=== PATIENT | female | born 1990 | race Caucasian/White ===

== ENCOUNTER 2023-04-16 07:29 | Outpatient (OUT) | payer OTHER, SELFPAY ==
[2023-04-16 08:25] LABS: Free T3 4.04 pg/mL (2.18-3.98); Thyroid Stimulating Hormone <0.007 uIU/mL (0.358-3.740)
[2023-04-16 09:26] LABS: Free T4 1.21 ng/dL (0.76-1.46)
== END 2023-04-16 07:30 ==
PROVIDERS: PCP Nurse Practitioner; Visit Provider Nurse Practitioner
DX: E05.90 Thyrotoxicosis, unspecified without thyrotoxic crisis or storm (principal); E03.9 Hypothyroidism, unspecified
CPT/HCPCS: 36415; 84439; 84443; 84481

== ENCOUNTER 2023-05-08 09:40 | Outpatient (OUT) | payer OTHER, SELFPAY ==
[2023-05-08 12:58] LABS: Alanine Aminotransferase 40 U/L (14-59); Albumin Globulin Ratio 0.8; Albumin Level 3.4 g/dL (3.4-5.0); Alkaline Phosphatase 52 U/L (46-116); Aspartate Amino Transferase 21 U/L (15-37); Bilirubin Direct 0.1 mg/dL (0.0-0.2); Bilirubin Total 0.3 mg/dL (0.2-1.0); Globulin 4.2 g/dL; Total Protein 7.6 g/dL (6.4-8.2)
[2023-05-09 04:07] LABS: Thyroid Peroxidase (TPO) Ab 69 IU/mL (0-34)
[2023-05-10 14:07] LABS: Thyrotropin Receptor Ab, Serum 2.41 IU/L (0.00-1.75)
[2023-05-11 16:09] LABS: Thyroglobulin Antibody <1.0 IU/mL (0.0-0.9)
== END 2023-05-08 09:41 | disposition home or self-care (01) ==
LOC: LAB 05-12 15:01
PROVIDERS: PCP Nurse Practitioner; Visit Provider Internal Medicine
DX: F41.9 Anxiety disorder, unspecified (principal); E05.90 Thyrotoxicosis, unspecified without thyrotoxic crisis or storm
CPT/HCPCS: 36415; 80076; 83520; 86376; 86800

== ENCOUNTER 2023-07-03 07:08 | Outpatient (OUT) | payer OTHER, SELFPAY ==
[2023-07-03 08:45] LABS: Alanine Aminotransferase 39 U/L (14-59); Albumin Globulin Ratio 0.9; Albumin Level 3.8 g/dL (3.4-5.0); Alkaline Phosphatase 54 U/L (46-116); Aspartate Amino Transferase 16 U/L (15-37); Bilirubin Direct 0.1 mg/dL (0.0-0.2); Bilirubin Total 0.3 mg/dL (0.2-1.0); Free T3 3.91 pg/mL (2.18-3.98); Globulin 4.3 g/dL; Thyroid Stimulating Hormone <0.007 uIU/mL (0.358-3.740); Total Protein 8.1 g/dL (6.4-8.2)
[2023-07-03 09:45] LABS: Free T4 1.13 ng/dL (0.76-1.46)
== END 2023-07-03 07:09 | disposition home or self-care (01) ==
LOC: LAB 07:10
PROVIDERS: PCP Nurse Practitioner; Visit Provider Internal Medicine
DX: E05.90 Thyrotoxicosis, unspecified without thyrotoxic crisis or storm (principal); E05.00 Thyrotoxicosis with diffuse goiter without thyrotoxic crisis or storm
CPT/HCPCS: 36415; 80076; 84439; 84443; 84481

== ENCOUNTER 2023-09-23 12:12 | Outpatient (OUT) | payer OTHER, SELFPAY ==
[2023-09-23 12:55] LABS: Alanine Aminotransferase 30 U/L (14-59); Albumin Globulin Ratio 0.9; Albumin Level 3.7 g/dL (3.4-5.0); Alkaline Phosphatase 63 U/L (46-116); Aspartate Amino Transferase 19 U/L (15-37); Bilirubin Direct 0.1 mg/dL (0.0-0.2); Bilirubin Total 0.3 mg/dL (0.2-1.0); Free T3 2.44 pg/mL (2.18-3.98); Globulin 4.3 g/dL; Thyroid Stimulating Hormone 0.681 uIU/mL (0.358-3.740)
--- OUTSIDE RECORDS SUMMARY | 2023-11-03 14:09 | XMS_ITS | CCD ---
Author Name Unknown Address [address] [place] [address] Organization [facility] Care Team Providers Care [place] [facility] Team Member Name Role Phone Meg Oropeza Primary Care Physician SANDIP ., MEG Katz Attending Unavailable SANDIP ., MEG Katz Admitting Unavailable ALCOCER ., DR ZULMA Gómez Primary Care Unavailable ZIEBER, DR ROBERTA Gant Consulting Unavailable SANDIP ., MEG Katz Consulting Unavailable SandipMeg Primary Care Unavailable Esdras, Emerald Attending Unavailable EsdrasEl alcantarad Admitting Unavailable Sandip, BIOMEDICAL ENGINEERING TECHNICIAN Meg Katz Attending Unavailable Sandip, BIOMEDICAL ENGINEERING TECHNICIAN Meg Katz Attending Unavailable Sandip, BIOMEDICAL ENGINEERING TECHNICIAN Meg Katz Attending Unavailable Sandip, BIOMEDICAL ENGINEERING TECHNICIAN Meg Katz Admitting Unavailable Sandip, BIOMEDICAL ENGINEERING TECHNICIAN Meg Katz Attending Unavailable Bipin To Admitting Unavailable Bipin To Attending Unavailable Medications Current Medications Medication Drug Class(es) Dates Sig (Normalized) Sig (Original) hydroCHLOROthiazide 12.5 mg oral capsule (2 sources) Thiazide Diuretic Start: 3 take 1 capsule by mouth once daily hydrochlorothiazide 12.5 mg Cap 12.5 mg = 1 cap(s), Oral, Daily, # 30 cap(s), Refills(s) 1, Pharmacy: [facility]/pharmacy #[id number], 166, cm, 03/09/23 8:31:00 EDT, Height/Length Dosing, 143, kg, 03/09/23 8:33:00 EDT, Weight Dosing Start Date: 03/09/23 Status: Ordered Problems Problem Classification Problem Date Documented Da te Episodic/Chronic Hemorrhoids (2 sources) Hemorrhoids 03-06-2023 Episodic Malaise and fatigue (4 sources) Other fatigue; Translations: [OTHER FATIGUE] Onset: 03-11-2023 Episodic Menstrual disorders (1 source) Excessive and frequent menstruation with regular cycle; Translations: [EXCESS FREQ MENSTRUATION W/REG CYCL] Onset: 03-14-2023 Chronic Other female genital disorders (2 sources) Dysplasia of cervix 03-14-2014 Episodic Other nervous system disorders (2 sources) H/O: migraine 04-27-2014 Episodic Other nutritional; endocrine; and metabolic disorders (1 source) Abnormal weight gain; Translations: [ABNORMAL WEIGHT GAIN] Onset: 03-14-2023 Episodic Unclassified (1 source) Thyrotoxicosis, unspecified without thyrotoxic crisis or storm; Translations: [Thyrotoxicosis, unspecified without thyrotoxic crisis or storm] Onset: 04-28-2023 Viral infection (2 sources) Coronavirus infection 03-06-2023 Episodic Comment on above: Jul 2021 and Nov 04 Results Test Name Value Interpretation Reference Range Facil ity NM thyroid uptake multipleon 04-29-2023 NM thyroid uptake [facility] [place] [address] Nuclear Medicine Report Signed Patient: Kiley Oliver MR#: [id number] 3 : 1990 Acct:[id number] Age/Sex: 32 / F ADM Date: 04/28/23 Loc: [place] Room: Type: [facility] Attending Dr: Emerald Dewitt MD Copies to: MD Dickson Gutierrez Jeffrey S DO Ordering Provider: Emerald Dewitt MD Date of Service: 04/28/23 NM/NM thyroid uptake multiple: E05.90, F41.9 Nuclear medicine thyroid uptake TECHNIQUE: Patient ingested a capsule containing 2 and 78 uCi of I-123. For 24 hour uptake performed. Planar imaging of the neck obtained. HISTORY: Weight gain. Abnormal menses. Swelling. Tiny RIGHT thyroid nodule seen with ultrasound examination 04/28/23 Homogeneous uptake of thyroid gland seen without hot or cold nodule. 4 uptake is 16.2%. The 24- hour uptake is 37.3%. 4 uptake is normal. 24-hour uptake is elevated. NM/NM thyroid uptake multiple IMPRESSION: No hot or cold nodule of thyroid gland. Normal 4 hour uptake. Elevated 24-hour uptake. Impression dictated by: Benito Forman M.D.04/29/2023 8:28 AM Dictation Location: [place] [address] Transcribed By: [facility] 04/29/23827 Dictated By: Benito Forman DO 04/29/23822 Signed By: 04/29/23827 [facility] US thyroidon 04-28-2023 US thyroid [facility] [place] [address] Ultrasound Report Signed Patient: Kiley Oliver MR#: [id number] 3 : 1990 Acct:[id number] Age/Sex: 32 / F ADM Date: 04/28/23 Loc: [place] Room: Type: [facility] Attending Dr: Emerald Dewitt MD Ordering Provider: Emerald Dewitt MD Date of Service: 04/28/23 US/US thyroid: R05.90, F41.9 Copies to: Emerald Dewitt MD THYROID ULTRASOUND CLINICAL DATA: Thyrotoxicosis COMPARISON: None The right thyroid lobe measures 5.1 x 1.8 x 2.2 cm. The left lobe measures 4.6 x 1.8 x 2.1 cm. The isthmus measures 2 - 3 mm. Echotexture is mildly heterogeneous. A small hypoechoic nodular area is visualized toward the upper pole of the right thyroid lobe measuring 6 x 3 x 4 mm . No nodularity is seen on the left. There is no significant hyperemia. US/US thyroid IMPRESSION: MILDLY HETEROGENEOUS THYROID. TINY RIGHT THYROID NODULE. Impression dictated by: Clarissa Polo M.D.04/28/2023 11:43 AM Dictation Location: [place] [address] Tech: Joseline Christy Transcribed By: KHADAR 04/28/23 114 Dictated By: Clarissa Polo MD 04/28/23 1142 Signed By: 04/28/23 114 [facility] PAP [id number] 04-02-2023 Cytology report Cyto stain Doc (Cvx/Vag) Note Invalid Interpretation Code [facility] Comment on above: Result Comment: TESTS RESULT FLAG UNITS REF RANGE LAB Clinician Provided Cytology Information Source.............Endocervix No. of containers..01 ThinPrep Vial DIAGNOSIS: 01 NEGATIVE FOR INTRAEPITHELIAL LESION OR MALIGNANCY. SPECIMEN REPROCESSED FOR INTERPRETATION USING GLACIAL ACETIC ACID (GAA). Specimen adequacy: 01 Satisfactory for evaluation. Endocervical and/or squamous metaplastic cells (endocervical component) are present. Areas of partially obscuring blood are present. Performed by: 01 Herb Monteiro, Autopsy Pathologist (ASCP) . 01 Note: Note 01 The Pap smear is a screening test designed to aid in the detection of premalignant and malignant conditions of the uterine cervix. It is not a diagnostic procedure and should not be used as the sole means of detecting cervical cancer. Both false-positive and false-negative reports do occur. Test Methodology: Note 01 This liquid based ThinPrep(R) pap test was screened with the use of an image guided system. FLAG LEGEND: L-Low Normal,H-High Normal,LL-Alert Low,HH-Alert High <-Panic Low,>-Panic High,A-Abnormal,AA-Critical Abnormal Performed at: [address] [facility] [place] [address] Wanda Brandon MD, Performed By: #### 3 [id number] #### [facility] [address] [place] [address] HPV 16+18+31+33+35+39+45+51+52+56+58+59+66+68 DNA Probe+sig amp Ql (Cvx) Negative Invalid Interpretation Code Negative [facility] Comment on above: Result Comment: This nucleic acid amplification test detects fourteen high-risk HPV types (16,18,31,33,35,39,45,51,52,56,58,59,66,68) without differentiation. Performed at: [facility] [address] [place], [place] [id number] MD Roma Muñoz Performed at: =[facility] [id number] MD Roma Muñoz Performed By: #### 3 [id number] #### [facility] [address] [place] [address] Ambulatory Visit Summaryon 0 03-26-2023 Ambulatory Visit Summary KILEY OLIVER :1990 Visit Date:03/26/2023 Ambulatory Visit Instructions Your Diagnosis Thyroid disorder BMI 45.0-49.9, adult Non-smoker Your Care Team Attending Physician - Meg Mckinney Primary Care Physician - Meg Mckinney This Is Your Medications List hydrochlorothiazide (hydrochlorothiazide 12.5 mg Cap) Procedures Performed diagnostic therapeutic cone with endocervical curettage (03/24/2014). Discharge Vitals Heart Rate (Peripheral) 98 Blood Pressure 130/88 Height 168 cm Height 66 in Weight 139.9 kg Weight 307.78 lb BMI 49.57 Medications What How Much When Instructions New hydrochlorothiazide (hydrochlorothiazide 12.5 mg Cap) 1 Capsules By Mouth Every day Duration: 90 Days Refills: 3 Pickup at [id number] Pharmacy Information [id number]: [address] [place], [place] [id number] [phone] Allergies No Known Allergies Problems Ongoing - Any problem that you are currently receiving treatment for. BMI 45.0-49.9, adult Cervical dysplasia Coronavirus infection Hemorrhoids Hx of migraines Non-smoker Education Materials BMI for Adults What is BMI? Body mass index (BMI) is a number that is calculated from a person's weight and height. BMI can help estimate how much of a person's weight is composed of fat. BMI does not measure body fat directly. Rather, it is an alternative to procedures that directly measure body fat, which can be difficult and expensive. BMI can help identify people who may be at higher risk for certain medical problems. What are BMI measurements used for? BMI is used as a screening tool to identify possible weight problems. It helps determine whether a person is obese, overweight, a healthy weight, or underweight. BMI is useful for: ? Identifying a weight problem that may be related to a medical condition or may increase the risk for medical problems. ? Promoting changes, such as changes in diet and exercise, to help reach a healthy weight. BMI screening can be repeated to see if these changes are working. How is BMI calculated? BMI involves measuring your weight in relation to your height. Both height and weight are measured, and the BMI is calculated from those numbers. This can be done either in Cymro ([place] or metric measurements. Note that charts and online BMI calculators are available to help you find your BMI quickly and easily without having to do these calculations yourself. To calculate your BMI in Cymro ([place].S[place] measurements: 1. Measure your weight in pounds (lb). 2. Multiply the number of pounds by 703. ? For example, for a person who weighs 180 lb, multiply that number by 703, which equals 126,540. 3. Measure your height in inches. Then multiply that number by itself to get a measurement called inches squared. ? For example, for a person who is 70 inches tall, the inches squared measurement is 70 inches x 70 inches, which equals 4,900 inches squared. 4. Divide the total from step 2 (number of lb x 703) by the total from step 3 (inches squared): 126,540 ? 4,900 = 25.8. This is your BMI. To calculate your BMI in metric measurements: 1. Measure your weight in kilograms (kg). 2. Measure your height in meters (m). Then multiply that number by itself to get a measurement called meters squared. ? For example, for a person who is 1.75 m tall, the meters squared measurement is 1.75 m x 1.75 m, which is equal to 3.1 meters squared. 3. Divide the number of kilograms (your weight) by the meters squared number. In this example: 70 ? 3.1 = 22.6. This is your BMI. What do the results mean? BMI charts are used to identify whether you are underweight, normal weight, overweight, or obese. The following guidelines will be used: ? Underweight: BMI less than 18.5. ? Normal weight: BMI between 18.5 and 24.9. ? Overweight: BMI between 25 and 29.9. ? Obese: BMI of 30 or above. Keep these notes in mind: ? Weight includes both fat and muscle, so someone with a muscular build, such as an athlete, may have a BMI that is higher than 24.9. In cases like these, BMI is not an accurate measure of body fat. ? To determine if excess body fat is the cause of a BMI of 25 or higher, further assessments may need to be done by a health care provider. ? BMI is usually interpreted in the same way for men and women. Where to find more information For more information about BMI, including tools to quickly calculate your BMI, go to these websites: ? Centers for Disease Control and Prevention: www.cdc.gov ? [place] Heart Association: www.heart.org ? National Heart, Lung, and Blood [place]: www.nhlbi.nih.gov Summary ? Body mass index (BMI) is a number that is calculated from a person's weight and height. ? BMI may help estimate how much of a person's weight is composed of fat. BMI can help identify thos (more content not included)... Normal [facility] Family Medicine Office/Clini c Noteon 03-26-2023 Family Medicine Office/Clinic Note Chief Complaint chronic follow up HPI Staff Pt in office for recheck Menorrhagia, Fatigue, [place] extremity edema. BP was elevated at last visit at 03/09/23 visit reading was 140/100. Due for adult wellness and cervical cancer screen. Questions/concerns: Seen Dr. To yesterday, looked at ultrasound and lab work. Was placed on Provera for a week. Last labs 03/11/23 [facility] records in chart Abdominal US 03/09/23 [facility] records in chart Most recent TSH -03/09/23-.080 History of Present Illness pt presents today today go over lab work. she had her well woman exam done by Dr. Maza yesterday Review of Systems PHQ Score Initial Depression Screen Score: 0 ROS - Provider Constitutional: no fever, no chills, no sweats, no fatigue Respiratory: no shortness of breath, no cough, no orthopnea, no wheezing. Cardiovascular: no chest pain, no palpitations, no edema. Neurologic: no headache, no dizziness, no numbness, no weakness. Physical Exam Vitals & Measurements HR: 98(Peripheral) BP: 130/88 SpO2: 98% HT: 66 in HT: 168 cm WT: 139.9 kg WT: 307.78 lb BMI: 49.57 General: alert, no acute distress ENMT: oral mucosa moist, no pharyngeal erythema or exudate Cardiovascular: regular rate and rhythm, normal peripheral perfusion Respiratory: Lungs CTA, respirations non labored Extremities: no deformity, no trauma Neurological: oriented x 4, LOC appropriate for age, CN II-XII intact, motor strength equal & normal bilaterally, speech normal Assessment/Plan 1. Thyroid disorder (E07.9: Disorder of thyroid, unspecified) pt presents today to go over lab work. She was seen by Dr. Maza yesterday so he is taking care of her abnormal u/s results. Discussed lab work. discussed hyperthyroidism. will have TSH redrawn in 3 weeks. if it is still low. will consider starting medicaiton Ordered: Free T4 T3 Free Thyroid Stimulating Hormone 2. BMI 45.0-49.9, adult (Z68.42: Body mass index [BMI] 45.0-49.9, adult) BMI education complete Ordered: Free T4 T3 Free Thyroid Stimulating Hormone 3. Non-smoker (Z78.9: Other specified health status) continue not smoking Ordered: Free T4 T3 Free Thyroid Stimulating Hormone Orders: hydrochlorothiazide, 12.5 mg = 1 cap(s), Oral, Daily, X 90 day(s), # 90 cap(s), Refills(s) 3, Pharmacy: [facility]/pharmacy #[id number], 168, cm, 03/26/23 8:49:00 EDT, Height/Length Dosing, 139.9, kg, 03/26/23 8:49:00 EDT, Weight Dosing hydrochlorothiazide, 12.5 mg = 1 cap(s), Oral, Daily, # 30 cap(s), Refills(s) 1, Pharmacy: [facility]/pharmacy #[id number], 166, cm, 03/09/23 8:31:00 EDT, Height/Length Dosing, 143, kg, 03/09/23 8:33:00 EDT, Weight Dosing Follow-up No qualifying data available Patient Education BMI for Adults Problem List/Past Medical History Ongoing BMI 45.0-49.9, adult Cervical dysplasia Coronavirus infection Hemorrhoids Hx of migraines Non-smoker Historical No qualifying data Procedure/Surgical History diagnostic therapeutic cone with endocervical curettage (03/24/2014). Medications hydrochlorothiazide 12.5 mg Cap, 12.5 mg= 1 cap(s), Oral, Daily, 3 refills Allergies No Known Allergies Social History Alcohol - Denies Alcohol Use, 03/14/2014 Substance Abuse - Denies Substance Abuse, 03/14/2014 Tobacco - Denies Tobacco Use, 03/14/2014 Never (less than 100 in lifetime) Tobacco Use:. Never Smokeless Tobacco Use:. Household tobacco concerns: No., 03/26/2023 Family History Drug addiction: Brother. Hyperlipidemia: Mother. Hypertension: Mother. Thyroid disorder: Mother. Normal [facility] Comment on above: Result Comment: Elec tronically Signed By: Meg Mckinney\.br\Date and Time Signed: 03/26/23 09:25 EDT Patient Educationon 03-26-20 Patient Education Nutrition BMI for Adults What is BMI? Body mass index (BMI) is a number that is calculated from a person's weight and height. BMI can help estimate how much of a person's weight is composed of fat. BMI does not measure body fat directly. Rather, it is an alternative to procedures that directly measure body fat, which can be difficult and expensive. BMI can help identify people who may be at higher risk for certain medical problems. What are BMI measurements used for? BMI is used as a screening tool to identify possible weight problems. It helps determine whether a person is obese, overweight, a healthy weight, or underweight. BMI is useful for: ? Identifying a weight problem that may be related to a medical condition or may increase the risk for medical problems. ? Promoting changes, such as changes in diet and exercise, to help reach a healthy weight. BMI screening can be repeated to see if these changes are working. How is BMI calculated? BMI involves measuring your weight in relation to your height. Both height and weight are measured, and the BMI is calculated from those numbers. This can be done either in Cymro (U.S.) or metric measurements. Note that charts and online BMI calculators are available to help you find your BMI quickly and easily without having to do these calculations yourself. To calculate your BMI in Cymro ([place].S[place] measurements: 1. Measure your weight in pounds (lb). 2. Multiply the number of pounds by 703. ? For example, for a person who weighs 180 lb, multiply that number by 703, which equals 126,540. 3. Measure your height in inches. Then multiply that number by itself to get a measurement called inches squared. ? For example, for a person who is 70 inches tall, the inches squared measurement is 70 inches x 70 inches, which equals 4,900 inches squared. 4. Divide the total from step 2 (number of lb x 703) by the total from step 3 (inches squared): 126,540 ? 4,900 = 25.8. This is your BMI. To calculate your BMI in metric measurements: 1. Measure your weight in kilograms (kg). 2. Measure your height in meters (m). Then multiply that number by itself to get a measurement called meters squared. ? For example, for a person who is 1.75 m tall, the meters squared measurement is 1.75 m x 1.75 m, which is equal to 3.1 meters squared. 3. Divide the number of kilograms (your weight) by the meters squared number. In this example: 70 ? 3.1 = 22.6. This is your BMI. What do the results mean? BMI charts are used to identify whether you are underweight, normal weight, overweight, or obese. The following guidelines will be used: ? Underweight: BMI less than 18.5. ? Normal weight: BMI between 18.5 and 24.9. ? Overweight: BMI between 25 and 29.9. ? Obese: BMI of 30 or above. Keep these notes in mind: ? Weight includes both fat and muscle, so someone with a muscular build, such as an athlete, may have a BMI that is higher than 24.9. In cases like these, BMI is not an accurate measure of body fat. ? To determine if excess body fat is the cause of a BMI of 25 or higher, further assessments may need to be done by a health care provider. ? BMI is usually interpreted in the same way for men and women. Where to find more information For more information about BMI, including tools to quickly calculate your BMI, go to these websites: ? Centers for Disease Control and Prevention: www.cdc.gov ? [place] Heart Association: www.heart.org ? National Heart, Lung, and Blood [place]: www.nhlbi.nih.gov Summary ? Body mass index (BMI) is a number that is calculated from a person's weight and height. ? BMI may help estimate how much of a person's weight is composed of fat. BMI can help identify those who may be at higher risk for certain medical problems. ? BMI can be measured using Cymro measurements or metric measurements. ? BMI charts are used to identify whether you are underweight, normal weight, overweight, or obese. This information is not intended to replace advice given to you by your health care provider. Make sure you discuss any questions you have with your health care provider. Document Revised: 07/25/2020 Document Reviewed: 06/01/2020 [employer] Patient Education ? 2022 [employer] Normal [facility] PAP [id number] 03-25-2023 Collection Technique BRUSH-SPATULA Normal F [facility] Comment on above: Performed By: #### 3 [id number] #### [facility] [address] [place] [address] Gynecological Body Site ENDOCERVIX Normal [facility] Comment on above: Performed By: #### 3 [id number] #### [facility] [address] [place] [address] Physician Orderon 03-25-2023 Physician Order [id number]:127 Normal [facility] CBC AUTO DIFFon 03-11-2023 BASO # 0.1 103/ul Normal 0.0-0.1 [facility] Comment on above: Performed By: #### C BC #### [facility] [address] [place] [address] [address] Wood Espinoza Basophils/100 WBC (Bld) 0.8 % Normal 0.2-2.0 [facility] Comment on above: Performed By: #### C BC #### [facility] [address] [place] [address] Dr. Wood Espinoza EO # 0.1 103/ul Normal 0.0-0.7 [facility] Comment on above: Performed By: #### C BC #### [facility] [address] [place] [address] Dr. Wood Espinoza Eosinophils/100 WBC (Bld) 1.8 % Normal 0.9-7.0 [facility] Comment on above: Performed By: #### C BC #### [facility] [address] [place] [address] Dr. Wood Espinoza Erythrocyte distribution wid th (RBC) [Ratio] 16.3 % Critically high 11.0-15.0 [facility] Comment on above: Performed By: #### C BC #### [facility] [address] [place] [address] Dr. Wood Espinoza Hematocrit (Bld) [Volume fraction] 42.8 % Normal 3 6.0-48.0 [facility] Comment on above: Performed By: #### C BC #### [facility] [address] [place] [address] Dr. Wood Espinoza Hemoglobin (Bld) [Mass/Vol] 13.2 g/dL Normal 12.0-16. 0 [facility] Comment on above: Performed By: #### C BC #### [facility] [address] [place] [address] Dr. Wood Espinoza IG # 0.03 10e3/ul Normal 0.00-0.03 [facility] Comment on above: Performed By: #### C BC #### [facility] [address] [place] [address] Dr. Wood Espinoza IG % 0.5 % Normal 0.0-0.5 [facility] Comment on above: Performed By: #### C BC #### [facility] [address] [place] [address] Dr. Wood Espinoza LYMPH # 2.5 103/ul Normal 1.2-3.8 [facility] Comment on above: Performed By: #### C BC #### [facility] [address] [place] [address] [address] Wood Espinoza Lymphocytes/100 WBC (Bld) 38.9 % Normal 20.5-60.0 [facility] Comment on above: Performed By: #### C BC #### [facility] [address] [place] [address] Dr. Wood Espinoza MANUAL DIFF REQ NO Normal [facility] Comment on above: Performed By: #### C BC #### [facility] [address] [place] [address] Dr. Wood Espinoza MCH (RBC) [Entitic mass] 23.7 pg Critically low 26.7-34 .0 [facility] Comment on above: Performed By: #### C BC #### [facility] [address] [place] [address] Dr. Wood Espinoza MCHC (RBC) [Mass/Vol] 30.8 g/dL Normal 29.9-35.2 [facility] Comment on above: Performed By: #### C BC #### [facility] [address] [place] [address] Dr. Wood Espinoza MCV (RBC) [Entitic vol] 76.7 fL Critically low 81.0-99. 0 [facility] Comment on above: Performed By: #### C BC #### [facility] [address] [place] [address] Dr. Wood Espinoza MONO # 0.5 103/ul Normal 0.3-0.8 [facility] Comment on above: Performed By: #### C BC #### [facility] [address] [place] [place] [address] Dr. Wood Espinoza Monocytes/100 WBC (Bld) 7.0 % Normal 1.7-12.0 [facility] Comment on above: Performed By: #### C BC #### [facility] [address] [place] [address] Dr. Wood Espinoza NEUT # 3.3 103/ul Normal 1.4-6.5 [facility] Comment on above: Performed By: #### C BC #### [facility] [address] [address] [address] Wood Espinoza Neutrophils/100 WBC (Bld) 51.0 % Normal 43.0-75.0 [facility] Comment on above: Performed By: #### C BC #### [facility] [address] [address] [address] Wood Espinoza Platelet mean volume (Bld) [Entitic vol] 9.7 fL Normal 9.5-13.5 [facility] Comment on above: Performed By: #### C BC #### [facility] [address] [address] [address] Wood Espinoza PLT 249 103/ul Normal 150-450 [facility] Comment on above: Performed By: #### C BC #### [facility] [address] [address] [address] Wood Espinoza RBC 5.58 106/ul Critically high 4.20-5.40 [facility] Comment on above: Performed By: #### C BC #### [facility] [address] [address] [address] Wood Espinoza WBC 6.5 103/ul Normal 4.0-11.0 [facility] Comment on above: Performed By: #### C BC #### [facility] [address] [address] [address] Wood Espinoza FREE T4on 03-11-2023 Free T4 [Mass/Vol] 0.90 ng/dL Normal 0.76-1.46 [facility] Comment on above: Performed By: #### F T4 #### [facility] [address] [address] [address] Wood Espinoza LIPID PROFILEon 03-11-2023 CHOL-HDL RATIO NORM SEE BELOW Normal [facility] Comment on above: Result Comment: 3.3 - 4.4 LOW RISK 4.4 - 7.1 AVERAGE RISK 7.1 - 11.0 MODERATE RISK >11.0 HIGH RISK Performed By: #### L IPID, CMP, PREGQNT, TSH #### [facility] [address] [address] [address] Wood Espinoza Cholesterol [Mass/Vol] 182 mg/dL Normal <=200 [facility] Comment on above: Performed By: #### L IPID, CMP, PREGQNT, TSH #### [facility] [address] [address] [address] Wood Espinoza Cholesterol in HDL [Mass/Vol] 35 mg/dL Critically low 40 -60 [facility] Comment on above: Performed By: #### L IPID, CMP, PREGQNT, TSH #### [facility] [address] [address] [address] Wood Espinoza Cholesterol in LDL [Mass/Vol] 99.8 mg/dL Normal [facility] Comment on above: Performed By: #### L IPID, CMP, PREGQNT, TSH #### [facility] [address] [address] [address] Wood Espinoza Cholesterol.total/Cholestero l in HDL [Mass ratio] 5.2 {ratio} Normal [facility] Comment on above: Performed By: #### L IPID, CMP, PREGQNT, TSH #### [facility] [address] [address] [address] Wood Espinoza HDL NORMAL > or = 60 mg/dl - LO W CARDIOVASCULAR RISK <40 mg/dl - HIGH CARDIOVASCULAR RISK Normal [facility] Comment on above: Performed By: #### L IPID, CMP, PREGQNT, TSH #### [facility] [address] [address] [address] Wood Espinoza LDL CALC NORMAL SEE BELOW Normal [facility] Comment on above: Result Comment: <100 mg/dl OPTIMAL 100 - 129 mg/dl NEAR OR ABOVE OPTIMAL 130 - 159 mg/dl BORDERLINE HIGH 160 - 189 mg/dl HIGH >190 mg/dl VERY HIGH Performed By: #### L IPID, CMP, PREGQNT, TSH #### [facility] [address] [address] [address] Wood Espinoza Triglyceride [Mass/Vol] 236 mg/dL Critically high <=150 [facility] Comment on above: Performed By: #### L IPID, CMP, PREGQNT, TSH #### [facility] [address] [address] [address] Wood Espinoza VLDL CALC 47.2 mg/dL Normal [facility] Comment on above: Performed By: #### L IPID, CMP, PREGQNT, TSH #### [facility] [address] [place] [address] Dr. Wood Espinoza Lab Reportson 03-11-2023 Lab Reports [id number] D:127 Normal [facility] PREG QUANT HCGon 03-11-2023 HCG QUANT <1 Normal [facility] Comment on above: Performed By: #### L IPID, CMP, PREGQNT, TSH #### [facility] [address] [place] [address] Dr. Wood Espinoza HCG RANGE SEE BELOW Normal [facility] Comment on above: Result Comment: 5-50 0.2-1 WEEK 50-500 1-2 WEEKS 100-5,000 2-3 WEEKS 500-10,000 3-4 WEEKS 1,000-50,000 4-5 WEEKS 10,000-100,000 5-6 WEEKS 15,000-200,000 6-8 WEEKS 10,000- 100,000 2-3 MONTHS Performed By: #### L IPID, CMP, PREGQNT, TSH #### [facility] [address] [place] [address] Dr. Wood Espinoza PROF 14(COMP METB)on 023 Albumin [Mass/Vol] 3.7 g/dL Normal 3.4-5.0 [facility] Comment on above: Performed By: #### L IPID, CMP, PREGQNT, TSH #### [facility] [address] [place] [address] Dr. Wood Espinoza Albumin/Globulin [Mass ratio] 0.8 {ratio} Normal [facility] Comment on above: Performed By: #### L IPID, CMP, PREGQNT, TSH #### [facility] [address] [address] [address] Wood Espinoza ALP [Catalytic activity/Vol] 71 U/L Normal 46-116 [facility] Comment on above: Performed By: #### L IPID, CMP, PREGQNT, TSH #### [facility] [address] [place] [address] Dr. Wood Espinoza ALT [Catalytic activity/Vol] 42 U/L Normal 14-59 [facility] Comment on above: Performed By: #### L IPID, CMP, PREGQNT, TSH #### [facility] [address] [place] [address] Dr. Wood Espinoza Anion gap [Moles/Vol] 11.5 mmol/L Normal [facility] Comment on above: Performed By: #### L IPID, CMP, PREGQNT, TSH #### [facility] [address] [place] [address] Dr. Wood Espinoza AST [Catalytic activity/Vol] 23 U/L Normal 15-37 [facility] Comment on above: Performed By: #### L IPID, CMP, PREGQNT, TSH #### [facility] [address] [place] [address] Dr. Wood Espinoza Bilirubin [Mass/Vol] 0.4 mg/dL Normal 0.2-1.0 [facility] Comment on above: Performed By: #### L IPID, CMP, PREGQNT, TSH #### [facility] [address] [place] [address] Dr. Wood Espinoza Calcium [Mass/Vol] 9.2 mg/dL Normal 8.5-10.1 [facility] Comment on above: Performed By: #### L IPID, CMP, PREGQNT, TSH #### [facility] [address] [place] [address] Dr. Wood Espinoza Chloride [Moles/Vol] 101 mmol/L Normal 98-107 [facility] Comment on above: Performed By: #### L IPID, CMP, PREGQNT, TSH #### [facility] [address] [place] [address] Dr. Wood Espinoza CO2 [Moles/Vol] 28.7 mmol/L Normal 21.0-32.0 [facility] Comment on above: Performed By: #### L IPID, CMP, PREGQNT, TSH #### [facility] [address] [address] [address] Wood Espinoza Creatinine [Mass/Vol] 0.81 mg/dL Normal 0.55-1.02 [facility] Comment on above: Performed By: #### L IPID, CMP, PREGQNT, TSH #### [facility] [address] [address] [address] Wood Espinoza EGFR-AF PORTUGUESE >60 Normal >=60 [facility] Comment on above: Performed By: #### L IPID, CMP, PREGQNT, TSH #### [facility] [address] [place] [address] Dr. Wood Espinoza EGFR-NON AF PORTUGUESE >60 Normal >=60 [facility] Comment on above: Performed By: #### L IPID, CMP, PREGQNT, TSH #### [facility] [address] [place] [address] Dr. Wood Espinoza Globulin (S) [Mass/Vol] 4.4 g/dL Normal [facility] Comment on above: Performed By: #### L IPID, CMP, PREGQNT, TSH #### [facility] [address] [place] [address] Dr. Wood Espinoza Glucose [Mass/Vol] 92 mg/dL Normal 74-106 [facility] Comment on above: Performed By: #### L IPID, CMP, PREGQNT, TSH #### [facility] [address] [place] [address] Dr. Wood Espinoza Potassium [Moles/Vol] 4.2 mmol/L Normal 3.5-5.1 [facility] Comment on above: Performed By: #### L IPID, CMP, PREGQNT, TSH #### [facility] [address] [place] [address] Dr. Wood Espinoza Protein [Mass/Vol] 8.1 g/dL Normal 6.4-8.2 [facility] Comment on above: Performed By: #### L IPID, CMP, PREGQNT, TSH #### [facility] [address] [address] [address] Wood Espinoza Sodium [Moles/Vol] 137 mmol/L Normal 136-145 [facility] Comment on above: Performed By: #### L IPID, CMP, PREGQNT, TSH #### [facility] [address] [place] [address] Dr. Wood Espinoza Urea nitrogen [Mass/Vol] 9.0 mg/dL Normal 7.0-18.0 [facility] Comment on above: Performed By: #### L IPID, CMP, PREGQNT, TSH #### [facility] [address] [place] [address] Dr. Wood Espinoza Urea nitrogen/Creatinine [Mass ratio] 11.1 mg/mg Normal [facility] Comment on above: Performed By: #### L IPID, CMP, PREGQNT, TSH #### [facility] [address] [place] [address] Dr. Wood Espinoza PROTIMEon 03-11-2023 INR Coag (PPP) [Relative time] 0.98 {INR} Normal [facility] Comment on above: Performed By: #### P TT, PT #### [facility] [address] [place] [address] Dr. Wood Espinoza INR GUIDELINES SEE BELOW Normal [facility] Comment on above: Result Comment: BRADEN RED INR: 2.0 - 3.0 CONDITIONS NOT LISTED BELOW 2.5 - 3.5 FOR PROSTHETIC HEART VALVE REPLACEMENT 2.5 - 3.5 RECURRENT THROMBOSIS Performed By: #### P TT, PT #### [facility] [address] [place] [address] Dr. Wood Espinoza PT Coag (PPP) [Time] 10.4 s Normal 9.0-11.6 [facility] Comment on above: Performed By: #### P TT, PT #### [facility] [address] [place] [address] Dr. Wood Espinoza PTTon 03-11-2023 aPTT Coag (Bld) [Time] 26.6 s Normal 22.3-36.2 Th e [facility] Comment on above: Performed By: #### P TT, PT #### [facility] [address] [address] [address] Wood Espinoza TSHon 03-11-2023 TSH 0.080 uIU/mL Critically low 0.358-3.740 [facility] Comment on above: Performed By: #### L IPID, CMP, PREGQNT, TSH #### [facility] [address] [address] [address] Wood Espinoza US PELVIS AND TRANSVAGon US PELVIS AND TRANSVAG EXAMINATION: US P LUIGI AND TRANSVAG HISTORY: Menorrhagia , weight loss COMPARISON: No relevant comparison available. TECHNIQUE: Transabdominal and transvaginal sonographic examination. FINDINGS: UTERUS: Several nabothian cysts within cervix, largest is 1.1 cm. Normal size and contour of the uterus. Uterus size: 8.9 x 5.1 x 4.3 cm ENDOMETRIUM: Slightly thickened, but homogeneous. Endometrial thickness: 17 mm RIGHT OVARY: Contains a 2.6 cm benign-appearing cyst. Duplex Doppler demonstrates normal waveform and flow; resistive index 0.6. Ovary size: 4.2 x 3.3 x 2.7 cm LEFT OVARY: Normal size and appearance. Duplex Doppler demonstrates normal waveform and flow; resistive index 0.5. Ovary size: 3.0 x 2.8 x 2.0 cm CUL-DE-SAC: Unremarkable. No significant free fluid. BLADDER: Unremarkable. OTHER: None. IMPRESSION: 1. Slightly thickened endometrium which just exceeds upper limits of normal; endometrial hyperplasia. No appreciable mass. Electronically authenticated by: ROBERTA PATEL Date: 2023-03-11 09:33 Normal [facility] Ambulatory Visit Summaryon 0 03-09-2023 Ambulatory Visit Summary KILEY OLIVER :1990 Visit Date:03/09/2023 Ambulatory Visit Instructions Your Diagnosis Menorrhagia Fatigue Edema, lower extremity Elevated blood pressure reading Weight gain BMI 50.0-59.9, adult Non-smoker Your Care Team Attending Physician - Meg Mckinney Primary Care Physician - Meg Mckinney This Is Your Medications List hydrochlorothiazide (hydrochlorothiazide 12.5 mg Cap) Procedures Performed diagnostic therapeutic cone with endocervical curettage (03/24/2014). Discharge Vitals Heart Rate (Peripheral) 95 Blood Pressure 140/100 Height 166 cm Height 65 in Weight 143 kg Weight 314.6 lb BMI 51.89 What to do next Scheduled Follow-Up Appointments Thursday 8:20 AM EDT With: Meg Mckinney Where: [facility] Family Medicine Office/Clini c Noteon 03-09-2023 Family Medicine Office/Clinic Note Chief Complaint est care HPI Staff establish care Establish Care: History: none Last provider: Pavan Any recent labs: due Health Maintenance UTD: Colonoscopy: none Mammogram: none Pelvic/Pap: due Acute: Current issues/complaints: pt states last periods very heavy and lasted 14 days, legs and feet swelling, fatigued, weight gain. History of Present Illness pt presents today c/o heavy periods, fatigue, and weight gain. Review of Systems PHQ Score Initial Depression Screen Score: 6 Detailed Depression Screen Score: 11 Total Depression Screen Score: 17 ROS - Provider Constitutional: no fever, no chills, no sweats, no fatigue Respiratory: no shortness of breath, no cough, no orthopnea, no wheezing. Cardiovascular: no chest pain, no palpitations, no edema. Neurologic: no headache, no dizziness, no numbness, no weakness. : regular cycles, no pain, heavy cycles, Physical Exam Vitals & Measurements HR: 95(Peripheral) BP: 140/100 SpO2: 97% HT: 65 in HT: 166 cm WT: 143 kg WT: 314.6 lb BMI: 51.89 ROS - Provider Constitutional: no fever, no chills, no sweats, no weakness. fatigue Skin: no Jaundice, no rash, no lesions, no petechiae. ENMT: no ear pain, no sore throat, no congestion, no hoarseness,no swelling of lymph nodes Respiratory: no shortness of breath, no cough, no orthopnea, no wheezing. Cardiovascular: no chest pain, no palpitations, no edema. Gastrointestinal: no nausea, no vomiting, no diarrhea, no GI bleeding. Genitourinary: no dysuria, no hematuria, no discharge, no pain. Musculoskeletal: no back pain, no trauma. Neurologic: no headache, no dizziness, no numbness, no weakness. Psychiatric: noDepressionno Anxietyno sleeping problems, no Suicidal thoughts or ideationsno mood swings Additional ROS info: Except as noted in the above Review of Systems and in the History of Present Illness all other systems have been reviewed and are negative or noncontributory. Assessment/Plan 1. Menorrhagia (N92.0: Excessive and frequent menstruation with regular cycle) pt presents today c/o heavy cycles. they are not painful they are regular. pt is over due for well woman exam. ordered menorrhagia labs. pelvic u/s to be done at [facility] per pt request. discussed weight loss, discussed anxiety and depression, may consider weight loss medication. pt to return in 2 weeks for well woman exam. all questions answered. Ordered: Lab Specimen Collect [id number] 2. Fatigue (R53.83: Other fatigue) TSH drawn in office today Ordered: Lab Specimen Collect [id number] 3. Edema, lower extremity (R60.0: Localized edema) HCTZ ordered 4. Elevated blood pressure reading (R03.0: Elevated blood-pressure reading, without diagnosis of hypertension) labs drawn, hctz ordered 5. Weight gain (R63.5: Abnormal weight gain) discussed weight loss. may consider medication. pt is already exercising 3 times per week 6. BMI 50.0-59.9, adult (Z68.43: Body mass index [BMI] 50.0-59.9, adult) BMI education complete Ordered: Lab Specimen Collect [id number] 7. Non-smoker (Z78.9: Other specified health status) continue not smoking Ordered: Lab Specimen Collect [id number] Orders: hydrochlorothiazide, 12.5 mg = 1 cap(s), Oral, Daily, # 30 cap(s), Refills(s) 1, Pharmacy: [facility]/pharmacy #[id number], 166, cm, 03/09/23 8:31:00 EDT, Height/Length Dosing, 143, kg, 03/09/23 8:33:00 EDT, Weight Dosing Follow-up No qualifying data available Problem List/Past Medical History Ongoing Cervical dysplasia Coronavirus infection Hemorrhoids Hx of migraines Historical No qualifying data Procedure/Surgical History diagnostic therapeutic cone with endocervical curettage (03/24/2014). Medications hydrochlorothiazide 12.5 mg Cap, 12.5 mg= 1 cap(s), Oral, Daily, 1 refills Allergies No Known Allergies Social History Alcohol - Denies Alcohol Use, 03/14/2014 Substance Abuse - Denies Substance Abuse, 03/14/2014 Tobacco - Denies Tobacco Use, 03/14/2014 Never (less than 100 in lifetime) Tobacco Use:. Never Smokeless Tobacco Use:., 03/09/2023 Family History Drug addiction: Brother. Hyperlipidemia: Mother. Hypertension: Mother. Thyroid disorder: Mother. Normal [facility] Comment on above: Result Comment: Elec tronically Signed By: Sandip ALFORD, Meg Katz\.br\Date and Time Signed: 03/09/23 09:56 EDT Encounters Encounter Date Encounter Type Care Provider Facility Start: 07-13-2023 ambulatory ROCÍO Oropeza Facilit y:[facility] Yvette Start: 04-28-2023 End: 04-28-2023 ambulatory Meg Oropeza Facility:[facility] Start: 03-26-2023 End: 03-27-2023 ambulatory BIOMEDICAL ENGINEERING TECHNICIAN [facility] Start: 03-25-2023 End: 03-26-2023 ambulatory Bipin To Facility:[facility] Start: 03-25-2023 End: 03-25-2023 Lab Drop off Bipin To [facility] Start: 03-11-2023 End: 03-12-2023 ambulatory MEG OROPEZA . Facility: Start: 03-09-2023 End: 03-10-2023 ambulatory BIOMEDICAL ENGINEERING TECHNICIAN Meg Oropeza Facility:[facility] Start: 03-09-2023 End: 03-09-2023 Lab Drop off Meg Oropeza [facility] Procedures Date Procedure Procedure Detail Performing Clinician Start: 03-24-2014 diagnostic therapeut ic cone with endocervical curettage Meg Oropeza Payers Date Payer Category Payer Self-pay 1990 Unknown [id number] [id number] [id number] 1990 Unknown [id number] [id number] [id number] 1990 Unknown [id number] [id number] [id number] 1990 Unknown [id number] 2.16.8 [id number] 1990 Unknown [id number] 2.16.8 [id number] 1990 Unknown [id number] 2.16.8 [id number] 1961 Private Health Insurance [id number] Unknown [id number] 2.16.8 [id number] Social History Date Type Detail Facility Start: 03-09-2023 Tobacco smoking status Never s moked tobacco (finding) [facility] Tobacco smoking status Never [facility] Sex Assigned At Female [facility] Evaluation + Plan note Note Date & Type Note Facility Evaluation + Plan note No data available for this section [facility] Evaluation + Plan note Note Date & Type Note Facility Evaluation + Plan note Future Appointments Appointment Date:03/26/2023 08:40:00 AM Scheduled Provider:Meg Mckinney Location:[facility] Appointment Type: Open Diagnostic Tests PendingWAP [id number] 03/25/23 [facility] Hospital Discharge instructions Note Date & Type Note Facility Hospital Discharge instructions No data available for this section [facility] Progress note Note Date & Type Note Facility Progress note No data available for this section [facility] Summary Purpose Family History No Family History Records FoundNo Family History Records FoundNo Family History Records Found Advance Directives No Advanced Directives Records FoundNo Advanced Directives Records FoundNo Advanced Directives Records Found Additional Source Comments Patient Care team informatio n (unrecognized section and content) Personnel Name: Sandip BIOMEDICAL ENGINEERING TECHNICIANMeg Huerta Address: Address: [address] [place] [address]- INFORMATION SOURCE (unrecogn ized section and content) DATE CREATED AUTHOR 04/24/2023 [facility] DATE CREATED AUTHOR AUTHOR'S ORGANIZ ATION 05/11/2023 [facility] DATE CREATED AUTHOR AUTHOR'S ORGANIZ ATION 07/13/2023 [facility] FOR RECORDS PERTAINING TO PATIENTS WHO ARE OR HAVE BEEN ENROLLED IN A CHEMICAL DEPENDENCY/SUBSTANCEABUSE PROGRAM, SOME INFORMATION MAY BE OMITTED. This clinical summary was aggregated from multiple sources. Caution should be exercised in using it in the provision of clinical care. This summary normalizes information from multiple sources, and as a consequence, information in this document may materially change the coding, format and clinical context of patient data. In addition, data may be omitted in some cases. CLINICAL DECISIONS SHOULD BE BASED ON THE PRIMARY CLINICAL RECORDS. [facility] [email or web address] provides no warranty or guarantee of the accuracy or completeness of information in this document.
== END 2023-09-23 12:13 | disposition home or self-care (01) ==
LOC: LAB 12:12
PROVIDERS: PCP Nurse Practitioner; Visit Provider Internal Medicine
DX: E05.90 Thyrotoxicosis, unspecified without thyrotoxic crisis or storm (principal); E05.00 Thyrotoxicosis with diffuse goiter without thyrotoxic crisis or storm
CPT/HCPCS: 36415; 80076; 84439; 84443; 84481

== ENCOUNTER 2024-02-01 10:47 | Outpatient (OUT) | payer OTHER, SELFPAY ==
--- OUTSIDE RECORDS SUMMARY | 2024-02-01 10:50 | XMS_ITS | CCD ---
Author Name Unknown Address [address] [place] [address] Organization [facility] Care Team Providers Care Apprentice Cook Name Role Phone Meg Oropeza Primary Care Physician [phone] SANDIP ., MEG Katz Attending Unavailable SANDIP ., MEG Katz Admitting Unavailable ALCOCER ., DR ZULMA Gómez Primary Care Unavailable ZIEBER, DR ROBERTA Gant Consulting Unavailable SANDIP ., MEG Katz Consulting Unavailable SandipMeg Primary Care Unavailable Esdras, Emerald Attending Unavailable EsdrasEl alcantarad Admitting Unavailable Sanidp, TOWER AIR TRAFFIC CONTROL SPECIALIST Meg Katz Attending Unavailable Sandip, TOWER [employer] TRAFFIC CONTROL SPECIALIST Meg Katz Attending Unavailable Sandip, TOWER [employer] TRAFFIC CONTROL SPECIALIST Meg Katz Attending Unavailable Sandip, TOWER [employer] TRAFFIC CONTROL SPECIALIST Meg Katz Admitting Unavailable Sandip, TOWER [employer] TRAFFIC CONTROL SPECIALIST Meg Katz Attending Unavailable Bipin To Admitting Unavailable Bipin To Attending Unavailable Medications Current Medications Medication Drug Class(es) Dates Sig (Normalized) Sig (Original) hydroCHLOROthiazide 12.5 mg oral capsule (2 sources) Thiazide Diuretic Start: 3 take 1 capsule by mouth once daily hydrochlorothiazide 12.5 mg Cap 12.5 mg = 1 cap(s), Oral, Daily, # 30 cap(s), Refills(s) 1, Pharmacy: [facility]/pharmacy #[id number], 166, cm, 03/09/23 8:31:00 EDT, Height/Length [...] Results Test Name Value Interpretation Reference Range Facility NM thyroid uptake multipleon 04-29-[address] [place] [place] [address] Nuclear Medicine Report Signed Patient: Kiley Oliver MR#: [id number] 3 : 1990 Acct:[id number] Age/Sex: 32 / F ADM Date: 04/28/23 Loc: NM Room: Type: [facility] Attending Dr: Emerald Dewitt MD Copies to: [...] Benito Forman M.D.04/29/2023 8:28 AM Dictation Location: [place] [address] Transcribed By: KHADAR 04/29/2328 Dictated By: Benito Forman DO 04/29/23822 Signed By: 04/29/23827 [facility] US thyroidon 04-28-2023 thyroid [facility] [place] [address] Ultrasound Report Signed Patient: Kiley Oliver MR#: [id number] 3 : 1990 Acct:[id number] Age/Sex: 32 / F ADM Date: 04/28/23 Loc: [place] Room: Type: [facility] Attending Dr: Emerald Dewitt MD Ordering Provider: [...] Clarissa Polo M.D.04/28/2023 11:43 AM Dictation Location: [place] [address] Tech: Joseline Christy Transcribed By: KHADAR 04/28/23 114 Dictated By: Clarissa Polo MD 04/28/23 1142 Signed By: 04/28/23 114 [facility] PAP [id number] 04-02-2023 Cytology report Cyto stain Doc (Cvx/Vag) Note Invalid Interpretation Code [facility] Comment on above: Result Comment: TEST S RESULT FLAG UNITS REF RANGE LAB Clinician Provided Cytology Information Source.............Endocervix No. of containers..01 ThinPrep Vial DIAGNOSIS: 01 NEGATIVE FOR INTRAEPITHELIAL LESION OR MALIGNANCY. SPECIMEN REPROCESSED FOR INTERPRETATION USING GLACIAL ACETIC ACID (GAA). Specimen adequacy: 01 Satisfactory for evaluation. Endocervical and/or squamous metaplastic cells (endocervical component) are present. Areas of partially obscuring blood are present. Performed by: 01 Herb Monteiro, Mini Bar Attendant ([facility]) . 01 Note: Note 01 The Pap [...] Low,>-Panic High,A-Abnormal,AA-Critical Abnormal Performed at: [address] [facility] [place] [address] Wanda Brandon MD, Performed By: #### 3 [id number] #### [facility] [address] [place] [address] HPV 16+18+31+33+35+39+ 45+51+52+56+58+59+ 66+68 DNA Probe+sig amp Ql (Cvx) Negative Invalid Interpretation Code Negative [facility] Comment on above: Result Comment: This nucleic acid amplification test detects fourteen high-risk HPV types (16,18,31,33,35,39,45,51,52,56,58,59,66,68) without differentiation. Performed at: [facility] [address], [place] [id number] MD Roma Muñoz Performed at: =[facility] [address], [place] [id number] MD Roma Muñoz Performed By: #### 3 [id number] #### [facility] Laboratory [address] [place] [address] Ambulatory Visit Summaryon 0 03-26-2023 Ambulatory Visit Summary KILEY OLIVER :1990 Visit Date:03/26/2023 Ambulatory Visit Instructions Your Diagnosis Thyroid disorder BMI 45.0-49.9, adult Non-smoker Your Care Team Attending Physician - Mge Mckinney Primary Care Physician - Meg Mckinney [...] [id number] Pharmacy Information [id number]: [address] [place] [place], [place] [id number] [phone] Allergies No Known Allergies Problems Ongoing - [...] numbers. This can be done either in [place] ([place] or metric measurements. Note that charts and online BMI calculators are available to help you find your BMI quickly and easily without having to do these calculations yourself. To calculate your BMI in Welsh ([place] measurements: 1. Measure your weight in [...] for Disease Control and Prevention: www.cdc.gov ? [place] Heart Association: www.heart.org ? National Heart, Lung, and Blood [place]: www.nhlbi.nih.gov Summary ? Body mass index (BMI) is a number that is calculated from a person's weight and height. ? BMI may help estimate how much of a person's weight is composed of fat. BMI can help identify thos (more content not included)... Normal [facility] Family Medicine Office/Clini c Noteon 03-26-2023 Family [...] day(s), # 90 cap(s), Refills(s) 3, Pharmacy: [facility]/pharmacy #[id number], 168, cm, 03/26/23 8:49:00 EDT, Height/Length Dosing, 139.9, kg, 03/26/23 8:49:00 EDT, Weight Dosing hydrochlorothiazide, 12.5 mg = 1 cap(s), Oral, Daily, # 30 cap(s), Refills(s) 1, Pharmacy: [facility]/pharmacy #[id number], 166, cm, 03/09/23 8:31:00 EDT, Height/Length [...] Mother. Hypertension: Mother. Thyroid disorder: Mother. Normal [facility] Comment on above: Result Comment: Elec tronically [...] numbers. This can be done either in [place] (U.[place] or metric measurements. Note that charts and online BMI calculators are available to help you find your BMI quickly and easily without having to do these calculations yourself. To calculate your BMI in [place] ([place] measurements: 1. Measure your weight in [...] for Disease Control and Prevention: www.cdc.gov ? [place] Heart Association: www.heart.org ? National Heart, Lung, and Blood [place]: www.nhlbi.nih.gov Summary ? Body mass index (BMI) is a number that is calculated from a person's weight and height. ? BMI may help estimate how much of a person's weight is composed of fat. BMI can help identify those who may be at higher risk for certain medical problems. ? BMI can be measured using Welsh measurements or metric measurements. ? BMI charts are used to identify whether you are underweight, normal weight, overweight, or obese. This information is not intended to replace advice given to you by your health care provider. Make sure you discuss any questions you have with your health care provider. Document Revised: 07/25/2020 Document Reviewed: 06/01/2020 [employer] Patient Education ? 2022 [employer] Normal [facility] PAP [id number] 03-25-2023 Collection Technique BRUSH-SPATULA Normal [facility] Comment on above: Performed By: #### 3 [id number] #### [facility] Laboratory [address] [place] [address] Gynecological Body Site ENDOCERVIX Normal [facility] Comment on above: Performed By: #### 3 [id number] #### [facility] Laboratory [address] [place] [address] Physician Orderon 03-25-2023 Physician Order [id number] CD:127 Normal [facility] CBC AUTO DIFFon 03-11-2023 BASO # 0.1 103/ul Normal 0.0-0.1 [facility] Comment on above: Performed By: #### C BC #### Laboratory [address] [place], [place] [address] Dr. Wood Espinoza Basophils/100 WBC (Bld) 0.8 % Normal 0.2-2.0 [facility] Comment on above: Performed By: #### C BC #### Laboratory [address] [place] [address] Dr. Wood Espinoza EO # 0.1 103/ul Normal 0.0-0.7 The Comment on above: Performed By: #### C BC #### Laboratory [address] [place] [address] Dr. Wood Espinoza Eosinophils/100 WBC (Bld) 1.8 % Normal 0.9-7.0 The Comment on above: Performed By: #### C BC #### Laboratory [address] [place] [address] Dr. Wood Espinoza Erythrocyte distribution width (RBC) [Ratio] 16.3 % Critically high 11.0-15.0 The Comment on above: Performed By: #### C BC #### Laboratory [address] [place] [address] Dr. Wood Espinoza Hematocrit (Bld) [Volume fraction] 42.8 % Normal 36.0-48.0 [facility] Comment on above: Performed By: #### C BC #### Laboratory [address] [place] [address] Dr. Wood Espinoza Hemoglobin (Bld) [Mass/Vol] 13.2 g/dL Normal 12.0-16.0 [facility] Comment on above: Performed By: #### C BC #### Laboratory [address] [place] [address] Dr. Wood Espinoza IG # 0.03 10e3/ul Normal 0.00-0.03 The Comment on above: Performed By: #### C BC #### Laboratory [address] [place] [address] Dr. Wood Espinoza IG % 0.5 % Normal 0.0-0.5 The Comment on above: Performed By: #### C BC #### Laboratory [address] [place] [address] Dr. Wood Espinoza LYMPH # 2.5 103/ul Normal 1.2-3.8 The Comment on above: Performed By: #### C BC #### Laboratory [address] [place] [address] Dr. Wood Espinoza Lymphocytes/100 WBC (Bld) 38.9 % Normal 20.5-60.0 The Comment on above: Performed By: #### C BC #### Laboratory [address] [place] [address] Dr. Wood Espinoza MANUAL DIFF REQ NO Normal [facility] Comment on above: Performed By: #### C BC #### Laboratory [address] [place] [address] Dr. Wood Espinoza MCH (RBC) [Entitic mass] 23.7 pg Critically low 26.7-34.0 The Comment on above: Performed By: #### C BC #### Laboratory [address] [place] [address] Dr. Wood Espinoza MCHC (RBC) [Mass/Vol] 30.8 g/dL Normal 29.9-35.2 The Comment on above: Performed By: #### C BC #### Laboratory [address] [place] [address] Dr. Wood Espinoza MCV (RBC) [Entitic vol] 76.7 fL Critically low 81.0-99.0 The Comment on above: Performed By: #### C BC #### Laboratory [address] [place] [address] Dr. Wood Espinoza MONO # 0.5 103/ul Normal 0.3-0.8 The Comment on above: Performed By: #### C BC #### Laboratory [address] [place] [address] Dr. Wood Espinoza Monocytes/100 WBC (Bld) 7.0 % Normal 1.7-12.0 The Comment on above: Performed By: #### C BC #### Laboratory [address] [place] [address] Dr. Wood Espinoza NEUT # 3.3 103/ul Normal 1.4-6.5 The Comment on above: Performed By: #### C BC #### Laboratory [address] [place] [address] Dr. Wood Espinoza Neutrophils/100 WBC (Bld) 51.0 % Normal 43.0-75.0 [facility] Comment on above: Performed By: #### C BC #### Laboratory [address] [place] [address] Dr. Wood Espinoza Platelet mean volume (Bld) [Entitic vol] 9.7 fL Normal 9.5-13.5 [facility] Comment on above: Performed By: #### C BC #### Laboratory [address] [place] [address] Dr. Wood Espinoza PLT 249 103/ul Normal 150-450 [facility] Comment on above: Performed By: #### C BC #### Laboratory [address] [place] [address] Dr. Wood Espinoza RBC 5.58 106/ul Critically high 4.20-5.40 [facility] Comment on above: Performed By: #### C BC #### Laboratory [address] [place] [address] Dr. Wood Espinoza WBC 6.5 103/ul Normal 4.0-11.0 [facility] Comment on above: Performed By: #### C BC #### Laboratory [address] [place] [address] Dr. Wood Espinoza FREE T4on 03-11-2023 Free T4 [Mass/Vol] 0.90 ng/dL Normal 0.76-1.46 [facility] Comment on above: Performed By: #### F T4 #### Laboratory [address] [place] [address] Dr. Wood Espinoza LIPID PROFILEon 03-11-2023 CHOL-HDL RATIO NORM SEE BELOW Normal [facility] Comment on above: Result Comment: 3.3 - 4.4 LOW RISK 4.4 - 7.1 AVERAGE RISK 7.1 - 11.0 MODERATE RISK >11.0 HIGH RISK Performed By: #### L IPID, CMP, PREGQNT, TSH #### Laboratory [address] [place] [address] Dr. Wood Espinoza Cholesterol [Mass/Vol] 182 mg/dL Normal <=200 [facility] Comment on above: Performed By: #### L IPID, CMP, PREGQNT, TSH #### Laboratory [address] [place] [address] [address] Wood Espinoza Cholesterol in HDL [Mass/Vol] 35 mg/dL Critically low 40-60 [facility] Comment on above: Performed By: #### L IPID, CMP, PREGQNT, TSH #### Laboratory [address] [place] [address] [address] Wood Espinoza Cholesterol in LDL [Mass/Vol] 99.8 mg/dL Normal [facility] Comment on above: Performed By: #### L IPID, CMP, PREGQNT, TSH #### Laboratory [address] [place] [address] [address] Wood Espinoza Cholesterol.total/ Cholesterol in HDL [Mass ratio] 5.2 {ratio} Normal [facility] Comment on above: Performed By: #### L IPID, CMP, PREGQNT, TSH #### Laboratory [address] [place] [address] [address] Wood Espinoza HDL NORMAL > or = 60 mg/dl - LO W CARDIOVASCULAR RISK <40 mg/dl - HIGH CARDIOVASCULAR RISK Normal [facility] Comment on above: Performed By: #### L IPID, CMP, PREGQNT, TSH #### Laboratory [address] [place] [address] [address] Wood Espinoza LDL CALC NORMAL SEE BELOW Normal [facility] Comment on above: Result Comment: <100 mg/dl OPTIMAL 100 - 129 mg/dl NEAR OR ABOVE OPTIMAL 130 - 159 mg/dl BORDERLINE HIGH 160 - 189 mg/dl HIGH >190 mg/dl VERY HIGH Performed By: #### L IPID, CMP, PREGQNT, TSH #### Laboratory [address] [place] [address] [address] Wood Espinoza Triglyceride [Mass/Vol] 236 mg/dL Critically high <=150 [facility] Comment on above: Performed By: #### L IPID, CMP, PREGQNT, TSH #### Laboratory [address] [place] [address] [address] Wood Espinoza VLDL CALC 47.2 mg/dL Normal [facility] Comment on above: Performed By: #### L IPID, CMP, PREGQNT, TSH #### Laboratory [address] [place] [address] Dr. Wood Espinoza Lab Reportson 03-11-2023 Lab Reports [id number] D:127 Normal [facility] PREG QUANT HCGon 03-11-2023 HCG QUANT <1 Normal [facility] Comment on above: Performed By: #### L IPID, CMP, PREGQNT, TSH #### Laboratory [address] [place] [address] Dr. Wood Espinoza HCG RANGE SEE BELOW Normal [facility] Comment on above: Result Comment: 5-50 0.2-1 WEEK 50-500 1-2 WEEKS 100-5,000 2-3 WEEKS 500-10,000 3-4 WEEKS 1,000-50,000 4-5 WEEKS 10,000-100,000 5-6 WEEKS 15,000-200,000 6-8 WEEKS 10,000-100,000 2-3 MONTHS Performed By: #### L IPID, CMP, PREGQNT, TSH #### Laboratory [address] [place] [address] Dr. Wood Espinoza PROF 14(COMP METB)on 023 Albumin [Mass/Vol] 3.7 g/dL Normal 3.4-5.0 [facility] Comment on above: Performed By: #### L IPID, CMP, PREGQNT, TSH #### Laboratory [address] [place] [address] Dr. Wood Espinoza Albumin/Globulin [Mass ratio] 0.8 {ratio} Normal [facility] Comment on above: Performed By: #### L IPID, CMP, PREGQNT, TSH #### Laboratory [address] [place] [address] Dr. Wood Espinoza ALP [Catalytic activity/Vol] 71 U/L Normal 46-116 [facility] Comment on above: Performed By: #### L IPID, CMP, PREGQNT, TSH #### Laboratory [address] [place] [address] [address] Wood Espinoza ALT [Catalytic activity/Vol] 42 U/L Normal 14-59 [facility] Comment on above: Performed By: #### L IPID, CMP, PREGQNT, TSH #### Laboratory [address] [place] [address] [address] Wood Espinoza Anion gap [Moles/Vol] 11.5 mmol/L Normal [facility] Comment on above: Performed By: #### L IPID, CMP, PREGQNT, TSH #### Laboratory [address] [place] [address] [address] Wood Espinoza AST [Catalytic activity/Vol] 23 U/L Normal 15-37 [facility] Comment on above: Performed By: #### L IPID, CMP, PREGQNT, TSH #### Laboratory [address] [place] [address] Dr. Wood Espinoza Bilirubin [Mass/Vol] 0.4 mg/dL Normal 0.2-1.0 [facility] Comment on above: Performed By: #### L IPID, CMP, PREGQNT, TSH #### Laboratory [address] [place] [address] [address] Wood Espinoza Calcium [Mass/Vol] 9.2 mg/dL Normal 8.5-10.1 [facility] Comment on above: Performed By: #### L IPID, CMP, PREGQNT, TSH #### Laboratory [address] [place] [address] [address] Wood Espinoza Chloride [Moles/Vol] 101 mmol/L Normal 98-107 The Comment on above: Performed By: #### L IPID, CMP, PREGQNT, TSH #### Laboratory [address] [place] [address] Dr. Wood Espinoza CO2 [Moles/Vol] 28.7 mmol/L Normal 21.0-32.0 [facility] Comment on above: Performed By: #### L IPID, CMP, PREGQNT, TSH #### Laboratory [address] [place] [address] Dr. Wood Espinoza Creatinine [Mass/Vol] 0.81 mg/dL Normal 0.55-1.02 The Comment on above: Performed By: #### L IPID, CMP, PREGQNT, TSH #### Laboratory [address] [place] [address] [address] Wood Espinoza EGFR-AF IRAQI >60 Normal >=60 [facility] Comment on above: Performed By: #### L IPID, CMP, PREGQNT, TSH #### Laboratory [address] [place] [address] [address] Wood Espinoza EGFR-NON AF IRAQI >60 Normal >=60 The Comment on above: Performed By: #### L IPID, CMP, PREGQNT, TSH #### Laboratory [address] [place] [address] [address] Wood Espinoza Globulin (S) [Mass/Vol] 4.4 g/dL Normal The Comment on above: Performed By: #### L IPID, CMP, PREGQNT, TSH #### [address] [place] [address] [address] Wood Espinoza Glucose [Mass/Vol] 92 mg/dL Normal 74-106 [facility] Comment on above: Performed By: #### L IPID, CMP, PREGQNT, TSH #### Laboratory [address] [place] [address] [address] Wood Espinoza Potassium [Moles/Vol] 4.2 mmol/L Normal 3.5-5.1 The Comment on above: Performed By: #### L IPID, CMP, PREGQNT, TSH #### Laboratory [address] [place] [address] [address] Wood Espinoza Protein [Mass/Vol] 8.1 g/dL Normal 6.4-8.2 [facility] Comment on above: Performed By: #### L IPID, CMP, PREGQNT, TSH #### Laboratory [address] [place] [address] [address] Wood Espinoza Sodium [Moles/Vol] 137 mmol/L Normal 136-145 [facility] Comment on above: Performed By: #### L IPID, CMP, PREGQNT, TSH #### Laboratory [address] [place] [address] Dr. Wood Espinoza Urea nitrogen [Mass/Vol] 9.0 mg/dL Normal 7.0-18.0 [facility] Comment on above: Performed By: #### L IPID, CMP, PREGQNT, TSH #### Laboratory [address] [place] [address] Dr. Wood Espinoza Urea nitrogen/Creatinin e [Mass ratio] 11.1 mg/mg Normal [facility] Comment on above: Performed By: #### L IPID, CMP, PREGQNT, TSH #### Laboratory [address] [place] [address] Dr. Wood Espinoza PROTIMEon 03-11-2023 INR Coag (PPP) [Relative time] 0.98 {INR} Normal [facility] Comment on above: Performed By: #### P TT, PT #### Laboratory [address] [place] [address] Dr. Wood Espinoza INR GUIDELINES SEE BELOW Normal [facility] Comment on above: Result Comment: BRADEN RED INR: 2.0 - 3.0 CONDITIONS NOT LISTED BELOW 2.5 - 3.5 FOR PROSTHETIC HEART VALVE REPLACEMENT 2.5 - 3.5 RECURRENT THROMBOSIS Performed By: #### P TT, PT #### Laboratory [address] [place] [address] Dr. Wood Espinoza PT Coag (PPP) [Time] 10.4 s Normal 9.0-11.6 [facility] Comment on above: Performed By: #### P TT, PT #### Laboratory [address] [place] [address] Dr. Wood Espinoza PTTon 03-11-2023 aPTT Coag (Bld) [Time] 26.6 s Normal 22.3-36.2 [facility] Comment on above: Performed By: #### P TT, PT #### Laboratory [address] [place] [address] Dr. Wood Espinoza TSHon 03-11-2023 TSH 0.080 uIU/mL Critically low 0.358-3.740 [facility] Comment on above: Performed By: #### L IPID, CMP, PREGQNT, TSH #### Laboratory [address] [place] [id number] Wood Espinoza US PELVIS AND TRANSVAGon US PELVIS AND TRANSVAG EXAMINATION: US PELVIS AND TRANSVAG HISTORY: Menorrhagia , weight loss [...] ROBERTA PATEL Date: 2023-03-11 09:33 Normal The Ambulatory Visit Summaryon 0 03-09-2023 Ambulatory Visit [...] 8:20 AM EDT With: Meg Mckinney Where: [facility] Yvette Normal [facility] Office/Clini c Noteon 03-09-2023 Family Medicine Office/Clinic [...] labs. pelvic u/s to be done at [facility] per pt request. discussed weight loss, discussed anxiety and depression, may consider weight loss medication. pt to return in 2 weeks for well woman exam. all questions answered. Ordered: Lab Specimen Collect [id number] 2. Fatigue (R53.83: Other fatigue) TSH drawn in office today Ordered: Lab Specimen Collect [id number] 3. Edema, lower extremity (R60.0: Localized edema) [...] BMI education complete Ordered: Lab Specimen Collect [id number] 7. Non-smoker (Z78.9: Other specified health status) continue not smoking Ordered: Lab Specimen Collect [id number] Orders: hydrochlorothiazide, 12.5 mg = 1 cap(s), Oral, Daily, # 30 cap(s), Refills(s) 1, Pharmacy: [facility]/pharmacy #[id number], 166, cm, 03/09/23 8:31:00 EDT, Height/Length [...] Mother. Hypertension: Mother. Thyroid disorder: Mother. Normal [facility] Comment on above: Result Comment: Elec tronically Signed By: Sandip ALFORD, Meg Katz\.br\Date and Time Signed: 03/09/23 09:56 EDT Encounters Encounter Date Encounter Type Care Provider Facility Start: 07-13-2023 ambulatory [employer] Meg Oropeza Facilit y:[facility] Yvette Start: 04-28-2023 End: 04-28-2023 ambulatory Meg Oropeza Facility:[facility] Start: 03-26-2023 End: 03-27-2023 ambulatory ROCÍO Oropeza Facility:[facility] callie Start: 03-25-2023 End: 03-26-2023 ambulatory Bipin To Facility:[facility] Start: 03-25-2023 End: 03-25-2023 Lab Drop off Bipin To [facility] Start: 03-11-2023 End: 03-12-2023 ambulatory MEG OROPEZA . Facility: Start: 03-09-2023 End: 03-10-2023 ambulatory ROCÍO Oropeza Facility:[facility] Start: 03-09-2023 End: 03-09-2023 Lab Drop off Meg Oropeza [facility] Procedures Date Procedure Procedure Detail Performing Clinician Start: 03-24-2014 diagnostic therapeut ic cone with endocervical curettage Meg Oropeza Payers Date Payer Category Payer Self-pay 1990 Unknown [id number] 2.16.84 [id number] 1990 Unknown [id number] 2.16.8 [id number] 1990 Unknown [id number] 2.16.8 [id number] 1990 Unknown [id number] 2.16.8 [id number] 1990 Unknown [id number] 2.16.8 [id number] 1990 Unknown [id number] 2.16.8 [id number] 1961 Private Health Insurance [id number] Unknown [id number] 2.16.8 [id number] Social History Date Type Detail Facility Start: 03-09-2023 Tobacco smoking status Never s moked tobacco (finding) [facility] Tobacco smoking status Never [facility] Sex Assigned At Female [facility] Evaluation + Plan note Note Date & Type Note Facility Evaluation + Plan note No data available for this section [facility] Evaluation + Plan note Note Date & Type Note Facility Evaluation + Plan note Future Appointments Appointment Date:03/26/2023 08:40:00 AM Scheduled Provider:Meg Mckinney Location:[facility] Appointment Type: Open Diagnostic Tests PendingNYP [id number] 03/25/23 [facility] Hospital Discharge instructions Note Date & Type Note Facility Hospital Discharge instructions No data available for this section [facility] Progress note Note Date & Type Note Facility Progress note No data available for this section [facility] Summary Purpose Family History No Family History Records FoundNo Family History Records FoundNo Family History Records Found Advance Directives No Advanced Directives Records FoundNo Advanced Directives Records FoundNo Advanced Directives Records Found Additional Source Comments Patient Care team informatio n (unrecognized section and content) Personnel Name: Meg Mckinney Address: Address: [address] [place] [phone] INFORMATION SOURCE (unrecogn ized section and content) DATE CREATED AUTHOR 04/24/2023 [facility] DATE CREATED AUTHOR AUTHOR'S ORGANIZ ATION 05/11/2023 [facility] DATE CREATED AUTHOR AUTHOR'S ORGANIZ ATION 07/13/2023 [facility] FOR RECORDS PERTAINING TO PATIENTS WHO [...] BE BASED ON THE PRIMARY CLINICAL RECORDS. [employer] provides no warranty or guarantee of the accuracy or completeness of information in this document.
[2024-02-01 11:32] LABS: Free T4 0.95 ng/dL (0.76-1.46)
[2024-02-01 11:54] LABS: Alanine Aminotransferase 46 U/L (14-59); Albumin Globulin Ratio 0.9; Albumin Level 3.8 g/dL (3.4-5.0); Alkaline Phosphatase 54 U/L (46-116); Aspartate Amino Transferase 26 U/L (15-37); Bilirubin Direct 0.1 mg/dL (0.0-0.2); Bilirubin Total 0.4 mg/dL (0.2-1.0); Free T3 2.86 pg/mL (2.18-3.98); Globulin 4.2 g/dL; Thyroid Stimulating Hormone 2.118 uIU/mL (0.358-3.740)
== END 2024-02-01 10:48 | disposition home or self-care (01) ==
LOC: LAB 10:47
PROVIDERS: PCP Nurse Practitioner; Visit Provider Internal Medicine
DX: E05.90 Thyrotoxicosis, unspecified without thyrotoxic crisis or storm (principal); E05.00 Thyrotoxicosis with diffuse goiter without thyrotoxic crisis or storm
CPT/HCPCS: 36415; 80076; 84439; 84443; 84481

== ENCOUNTER 2024-06-03 08:11 | Outpatient (OUT) | payer OTHER, SELFPAY ==
[2024-06-03 09:46] LABS: Free T4 0.81 ng/dL (0.76-1.46)
[2024-06-03 09:55] LABS: Alanine Aminotransferase 48 U/L (14-59); Albumin Globulin Ratio 0.9; Albumin Level 3.6 g/dL (3.4-5.0); Alkaline Phosphatase 48 U/L (46-116); Aspartate Amino Transferase 24 U/L (15-37); Bilirubin Direct 0.1 mg/dL (0.0-0.2); Bilirubin Total 0.4 mg/dL (0.2-1.0); Free T3 2.47 pg/mL (2.18-3.98); Globulin 3.8 g/dL; Thyroid Stimulating Hormone 4.102 uIU/mL (0.358-3.740); Total Protein 7.4 g/dL (6.4-8.2)
== END 2024-06-03 08:12 | disposition home or self-care (01) ==
LOC: LAB 08:11
PROVIDERS: PCP Nurse Practitioner; Visit Provider Internal Medicine
DX: E05.90 Thyrotoxicosis, unspecified without thyrotoxic crisis or storm (principal); E05.00 Thyrotoxicosis with diffuse goiter without thyrotoxic crisis or storm
CPT/HCPCS: 36415; 80076; 84439; 84443; 84481